=== PATIENT | female | born 1965 | race Caucasian/White ===

== ENCOUNTER 2016-08-27 10:57 | Day surgery (SDC) | payer OTHER ==
[~2016-08-27 10:57] MED LIST: EPINEPHRINE INJ 1 MG/10 ML DISP.SYRIN ONE; FENTANYL CITRATE INJ/PF 100 MCG/2 ML AMPUL ONE; FLUMAZENIL INJ 0.5 MG/5 ML VIAL IV ONE; GLYCOPYRROLATE INJ 0.4 MG/2 ML VIAL ONE; NALOXONE HCL INJ/PF 0.4 MG/1 ML SDV ONE; ONDANSETRON HCL INJ/PF 4 MG/2 ML SDV ONE
[2016-08-27] MEDS: MIDAZOLAM 2 MG/2 ML INJ ONE ×2 (11:25→11:30)
[2016-08-27 12:38] VITALS: BP 128/64
[2016-08-27 12:43] LABS: ABSOLUTE BASOPHILS # (AUTO) 0.1 10^3/uL (0.0-0.2); ABSOLUTE EOSINOPHILS # (AUTO) 0.2 10^3/uL (0.0-0.6); ABSOLUTE LYMPHOCYTES (AUTO) 1.8 10^3/uL (0.5-4.7); ABSOLUTE MONOCYTES (AUTO) 0.4 10^3/uL (0.1-1.4); ABSOLUTE NEUT (AUTO) 3.8 10^3/uL (1.7-8.2); BASOPHILS % (AUTO) 1.2 % (0-2); EOSINOPHILS % (AUTO) 2.8 % (0-6); HEMATOCRIT 36.6 % (36.0-47.0); HEMOGLOBIN 11.7 g/dL (12.0-15.5); HGB HCT DIFFERENCE -1.5; LYMPHOCYTES % (AUTO) 28.6 % (13-45); MEAN CORPUSCULAR HEMOGLOBIN 27.8 pg (27.0-33.4); MEAN CORPUSCULAR HGB CONC 32.1 g/dL (32.0-36.0); MEAN CORPUSCULAR VOLUME 87 fl (80-97); MONOCYTES % (AUTO) 7.1 % (3-13); RED BLOOD COUNT 4.22 10^6/uL (3.72-5.28); RED CELL DISTRIBUTION WIDTH 15.5 % (11.5-14.0); SEGMENTED NEUTROPHILS % (AUTO) 60.3 % (42-78); WHITE BLOOD COUNT 6.3 10^3/uL (4.0-10.5)
[2016-08-27 13:06] LABS: ALBUMIN 3.6 g/dL (3.5-5.0); AMYLASE 35 U/L (30-110); ANION GAP 9 (5-19); BILIRUBIN,DIRECT 0.4 mg/dL (0.0-0.4); BILIRUBIN,TOTAL 0.5 mg/dL (0.2-1.3); CALCIUM 8.8 mg/dL (8.4-10.2); CARBON DIOXIDE 25 mmol/L (22-30); CHLORIDE 104 mmol/L (98-107); CREATININE RESULT 0.49 mg/dL (0.52-1.25); GLUCOSE 106 mg/dL (75-110); LIPASE 74.4 U/L (23-300); SODIUM 137.6 mmol/L (137-145); TOTAL PROTEIN 6.4 g/dL (6.3-8.2)
[2016-08-27 13:56] LABS: ALANINE AMINOTRANSFERASE 21 U/L (9-52); ALKALINE PHOSPHATASE 71 U/L (38-126); ASPARTATE AMINO TRANSFERASE 30 U/L (14-36); BLOOD UREA NITROGEN 9 mg/dL (7-20); IRON 35.9 ug/dL (37-170); POTASSIUM 4.5 mmol/L (3.6-5.0)
--- NOTE | 2016-08-28 08:08 | OPERATIVE REPORT E ---
Operative Report NAME: RONI ORTEGA : 1965 AGE: 50Y DATE OF SURGERY: 08/27/2016 ROOM: PREOPERATIVE DIAGNOSES: 1. Abdominal pain. 2. History of gastric bypass. 3. Hemorrhoid surgery. 4. C section. POSTOPERATIVE DIAGNOSES: 1. Abdominal pain. 2. Gastric ulcer. 3. Gastric bypass. PROCEDURES: Patient scheduled for upper endoscopy, but we were able to do only esophagoscopy. SURGEON: AMANDA RODRIGUEZ M.D. ANESTHESIA: Difficult to sedate. We gave her: 1. Versed 4 mg. 2. Fentanyl 100 mcg. DESCRIPTION OF PROCEDURE: The moment we passed the scope, the first trial, she started pulling it out and she said "it is burning." We sedated her more and we tried again. I advanced the scope into the esophagus. Proximal and distal esophagus normal. Mid esophagus and proximal esophagus normal. As we tried to introduce the scope into the stomach, the patient pulled the scope and I was not able to go into the stomach, so the procedure was terminated and we did only esophagoscopy. We did not do the gastric endoscopy. CONCLUSION: Normal esophagus. Unable to pass the scope into the stomach in spite of adequate sedation. PLAN: We will do upper GI series and if it is abnormal and the patient still has symptoms, we will consider doing her under general anesthesia or under propofol. DICTATING PHYSICIAN: AMANDA RODRIGUEZ M.D. [id number] PHY#: [id number] ID: [id number] JOB#: [id number] ACCT: [id number] cc:[facility] AMANDA RODRIGUEZ M.D. >
--- NOTE | 2016-08-31 10:09 | DISCHARGE SUMMARY E ---
Discharge Summary NAME: RONI ORTEGA : 1965 AGE: 50Y ADMITTED: 08/27/2016 DISCHARGED: 08/27/2016 PROCEDURE: Esophagoscopy. Scheduled for EGD but unsuccessful except esophagoscopy. HISTORY: Patient is 50. Presented with abdominal pain, history of gastric ulcer and bleeding, history of hemorrhoids, rectal bleeding. She smokes 1/2 pack daily. She did have gastric bypass in 2003, , hemorrhoid surgery. Endoscopy in [place] in 2015 showing peptic ulcer. Today upper endoscopy was successful only to esophagus. I did not see the stomach. DISCHARGE PLAN: Lab studies. Consider upper GI series. If endoscopy to be done, it has to be propofol or general anesthesia. DICTATING PHYSICIAN: AMANDA RODRIGUEZ M.D. [id number] Y#: [id number] ID: [id number] JOB#: [id number] ACCT: [id number] cc:[facility] AMANDA RODRIGUEZ M.D. >
== END 2016-08-27 12:45 | disposition home or self-care (01) ==
LOC: END 10:57
PROVIDERS: ATTEND Specialist
PROC: 0DJ08ZZ Inspection of Upper Intestinal Tract, Via Natural or Artificial Opening Endoscopic (ICD-10-PCS; principal; 2016-08-27 11:00)
DX: K21.9 Gastro-esophageal reflux disease without esophagitis (principal); R10.9 Unspecified abdominal pain; F17.210 Nicotine dependence, cigarettes, uncomplicated; Z98.84 Bariatric surgery status; Z87.11 Personal history of peptic ulcer disease
CPT/HCPCS: 43200; 36415; 82306; 82962; 82150; 82607; 82728; 83540; 83690; 85025; 80053; J2250; J3010; J0171; J2310; J2405; J3490

== ENCOUNTER 2016-11-02 14:04 | Emergency (ER) | payer OTHER ==
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
[2016-11-02 16:22] VITALS: BP 179/94
== END 2016-11-02 16:06 | disposition home or self-care (01) ==
LOC: ER 14:04
DX: F31.70 Bipolar disorder, currently in remission, most recent episode unspecified (principal); F11.10 Opioid abuse, uncomplicated; F13.10 Sedative, hypnotic or anxiolytic abuse, uncomplicated; F17.200 Nicotine dependence, unspecified, uncomplicated; I10 Essential (primary) hypertension; J45.909 Unspecified asthma, uncomplicated; Z63.5 Disruption of family by separation and divorce
CPT/HCPCS: 99283